=== PATIENT | male | born 1970 ===

== ENCOUNTER 2020-10-21 20:48 | Emergency (ER) | payer OTHER ==
[~2020-10-21] VITALS: Ht 177.8 cm; Wt 77.1 kg
== END 2020-10-21 22:27 | disposition home or self-care (01) ==
LOC: ER 20:48
DX: S61.241A Puncture wound with foreign body of left index finger without damage to nail, initial encounter (principal); F17.200 Nicotine dependence, unspecified, uncomplicated; Z88.0 Allergy status to penicillin; Z91.038 Other insect allergy status; Z88.2 Allergy status to sulfonamides; Z88.5 Allergy status to narcotic agent; Z88.6 Allergy status to analgesic agent; W45.8XXA Other foreign body or object entering through skin, initial encounter; Y93.89 Activity, other specified
CPT/HCPCS: 10120; 99283-25